=== PATIENT | female | born 1965 | race Caucasian/White ===

== ENCOUNTER 2016-05-05 00:32 | Emergency (ER) | payer MEDICAID ==
[~2016-05-05] VITALS: Ht 175.3 cm; Wt 81.6 kg
[2016-05-05 00:32] VITALS: BP 130/71; PULSE 64; RESP 18; TEMP 98.1; O2SAT 98
--- NOTE | 2016-05-05 00:32 | NUR ---
Patient to ER bed 1 to gown for evaluation. Side rails up.
--- NOTE | 2016-05-05 00:35 | NUR ---
PT WALKED AND STATED THAT SHE'S SUICIDAL AND SHE'S BEEN ADMITTED TO [facility] FOR PSYCH ISSUE. PT IS CALM AND COOPERATIVE. PT DENIES ANY PAIN.
--- NOTE | 2016-05-05 01:00 | NUR ---
ER at bedside examining patient.
[2016-05-05 03:32] LABS: BASOPHILS % (AUTO) 0.3 % (0.0-2.0); EOSINOPHILS # (AUTO) 0.3 K/uL (0.0-0.4); EOSINOPHILS % (AUTO) 2.3 % (0.0-4.0); HEMATOCRIT 38.9 % (36-48); HEMOGLOBIN 13.6 g/dL (12.0-16.0); LYMPHOCYTES # (AUTO) 2.6 K/uL (1.0-5.5); LYMPHOCYTES % (AUTO) 23.1 % (20.5-51.5); MEAN CORPUSCULAR HEMOGLOBIN 32 pg (27-31); MEAN CORPUSCULAR HGB CONC 35 % (32-36); MEAN CORPUSCULAR VOLUME 91 fL (79.0-98.0); MONOCYTES % (AUTO) 9.1 % (1.7-9.3); NEUTROPHILS # (AUTO) 7.2 K/uL (1.8-7.7); NEUTROPHILS % (AUTO) 65.2 % (40.0-70.0); PLATELET COUNT (AUTO) 286 K/uL (130-430); RED BLOOD CELL COUNT(AUTO) 4.29 MIL/uL (4.2-6.2); RED CELL DISTRIBUTION WIDTH 11.9 % (9.0-15.0); WHITE BLOOD COUNT (AUTO) 11.1 K/uL (4.8-10.8)
[2016-05-05 03:42] LABS: ANION GAP 6 (5-15); CALCIUM 9.3 mg/dL (8.4-11.0); CHLORIDE 106 mmol/L (98-107); CREATININE 0.66 mg/dL (0.55-1.30); GLUCOSE 102 mg/dL (70-99); POTASSIUM 4.1 mmol/L (3.5-5.1); SODIUM SERUM 141 mmol/L (136-145); UREA NITROGEN, BLOOD 11 mg/dL (8-21)
[2016-05-05 03:45] LABS: GFR AFRICAN AMERICAN 122 mL/min (>90)
[2016-05-05 03:46] LABS: ACETAMINOPHEN 10 ug/mL (1-30); ALANINE AMINOTRANSFERASE 22 U/L (12-78); ASPARTATE AMINOTRANSFERASE 18 U/L (10-37); SALICYLATE 4 mg/dL (3-30); TOTAL BILIRUBIN 0.5 mg/dL (0.0-1.0); TOTAL PROTEIN, SERUM 7.1 g/dL (6.4-8.3)
[2016-05-05 03:48] LABS: ALCOHOL, BLOOD < 3 mg/dL (<10)
[2016-05-05 04:22] LABS: BARBITURATE, URINE NEGATIVE (NEG <=200); METHAMPHETAMINES SCREEN,URINE NEGATIVE (NEG <=500); URINE AMPHETAMINE NEGATIVE (NEG <=500)
[2016-05-05 04:23] LABS: BENZODIAZEPINE, URINE NEGATIVE (NEG <=150); CANNABINOID, URINE NEGATIVE (NEG <=50); COCAINE, URINE NEGATIVE (NEG <=150); OPIATE, URINE NEGATIVE (NEG <=100); PHENCYCLIDINE SCREEN,URINE NEGATIVE (NEG <=25); UR TRICYCLIC ANTIDEPRESSANTS NEGATIVE (NEG <=300); URINE METHADONE NEGATIVE (NEG <=200); URINE OXYCODONE SCREEN NEGATIVE (NEG <=100); URINE PROPOXYPHENE SCREEN NEGATIVE (NEG <=300)
--- NOTE | 2016-05-05 07:25 | NUR ---
Recieved report from MARKIE Woodruff. Patient sleeping in bed in no acute distress, easily arousable to light to voice and light touch. Patient states she is homeless and she still has a SI plan, to jump in front of a car. Patient states she has not had SI before and then a few minutes later she states she has had SI before and does not remember the plan. will continue to monitor
--- NOTE | 2016-05-05 07:30 | NUR ---
Patient refusing safety meal tray.
--- NOTE | 2016-05-05 07:45 | NUR ---
suicidality completed and placed in chart
--- NOTE | 2016-05-05 07:45 | NUR ---
security at bedside to dannyd
--- NOTE | 2016-05-05 09:30 | NUR ---
Pt provided safety meal tray pt states she does not want to eat at this time, pt sleeping
--- NOTE | 2016-05-05 11:24 | NUR ---
dr vincent at bedside
--- NOTE | 2016-05-05 12:32 | NUR ---
report given to Kayla ADEN, care endorsed
--- NOTE | 2016-05-05 12:35 | NUR ---
[place] of care received, pt sleeping at this time, no signs of distress noted.
--- NOTE | 2016-05-05 14:17 | NUR ---
Pt ambulated to bathroom ,calm and cooperative
--- NOTE | 2016-05-05 15:00 | NUR ---
Pt resting comfortably at this time, VSS, pt cooperative.
--- NOTE | 2016-05-05 15:21 | NUR ---
Pt was moved to room 5 by charge nurse, pt denies pain ,cooperative with staff, VS WNL
--- NOTE | 2016-05-05 16:47 | NUR ---
Pt sleeping at this time, VS WNL, denies pain or discomfort.
--- NOTE | 2016-05-05 19:52 | NUR ---
Patient to be transferred to [place] . Is being transferred due to higher level of care. Receiving facility has accepting physician and available space. ER physician has signed transfer form. Patient or responsible constitution party has agreed to transfer and signed form. Patient belongings inventoried and will be sent with patient. Copy of nursing notes, lab reports, EKG, Physicians Orders and X-rays to be sent with patient. Report called to at receiving facility. . ambulance service has been called for transfer. ETA is 20 minutes
[2016-05-05 19:53] VITALS: BP 101/62; PULSE 65; RESP 15; TEMP 97; O2SAT 97
== END 2016-05-05 19:53 ==
LOC: SED 01:00
DX: R45.851 Suicidal ideations (principal); E11.9 Type 2 diabetes mellitus without complications; R03.0 Elevated blood-pressure reading, without diagnosis of hypertension
CPT/HCPCS: 36415; 80053; 80307; 81025; 85025; 93005; 99285; G0480; G0481; G0482